=== PATIENT | female | born 1950 | race Caucasian/White ===

== ENCOUNTER 2020-02-16 08:27 | Day surgery (SDC) | payer OTHER ==
[~2020-02-16] VITALS: Ht 160 cm; Wt 127.7 kg
[~2020-02-16 08:27] MED LIST: ADVANCED CALCI1 EACH; ALBU90OI INH; CALCIUM 500 +1 EAC3; CEPH500 PO; FERR325; FISH1000; FURO40 PO; GABA300 PO; GUAI600T33 PO; HYDACE5 PO; K-Dur10 MEQ PO; Keflex500 MG PO; LISI20 PO; Lasix20 MG PO; NAPR500EC; NEOPOLHCSU RIGHTEAR; Naprosyn500 MG PO; Norco 5-325 Ta1 EACH PO; ONDA8ODT MM; SULTRIDS PO; SULTRISS PO; TRAM50 PO; Vibramycin100 MG PO; Vitamin C100 M1; Zofran Odt4 MG SL; [UNRECOGNIZED DRUG - REMARK]
--- NOTE | 2020-02-16 11:40 | NUR ---
PT BACK TO RECOVERY ROOM VIA RECLINER AFTER PROCEDURE. RIGHT RADIAL TR BAND AND SPLINT IN PLACE ON RIGHT WRIST. SITE IS CLEAN AND DRY, NO BLEEDING OR SWELLING NOTED.
--- NOTE | 2020-02-16 13:00 | NUR ---
RIGHT RADIAL TR BAND HAS BEEN FULLY DEFLATED, SITE IS CLEAN AND DRY. NO BLEEDING OR SWELLING NOTED. PT DENIES PAIN OR DISCOMFORT. CALL LIGHT IN REACH.
--- NOTE | 2020-02-16 14:16 | NUR ---
IV DC'D, CATH INTACT. PT GIVEN DC INSTRUCTIONS, FOLLOW UP INFORMATION. VERBALIZED UNDERSTANDING. RIGHT RADIAL SITE REMAINS SOFT AND NON-TENDER. NO BLEEDING OR SWELLING NOTED. PT OUT TO CAR VIA WHEELCHAIR.
== END 2020-02-16 15:14 | disposition home or self-care (01) ==
LOC: MHTC 08:27
PROC: B201YZZ Plain Radiography of Multiple Coronary Arteries using Other Contrast (ICD-10-PCS; principal; 2020-02-16)
PROC: 4A023N7 Measurement of Cardiac Sampling and Pressure, Left Heart, Percutaneous Approach (ICD-10-PCS; principal; 2020-02-16)
DX: I35.0 Nonrheumatic aortic (valve) stenosis (principal); I25.10 Atherosclerotic heart disease of native coronary artery without angina pectoris; I10 Essential (primary) hypertension; F41.9 Anxiety disorder, unspecified; E66.01 Morbid (severe) obesity due to excess calories; Z68.42 Body mass index [BMI] 45.0-49.9, adult; Z79.899 Other long term (current) drug therapy; Z88.5 Allergy status to narcotic agent
CPT/HCPCS: 93454; 99152; 99153; J1644; J2250; J3010; J7030; J7050; Q9967

== ENCOUNTER 2023-10-27 09:06 | Inpatient (IN) | payer OTHER ==
[~2023-10-27] VITALS: Ht 160 cm; Wt 111.5 kg
[~2023-10-27 09:06] MED LIST changes: +POTCHL20ER PO
[2023-10-27 09:38] VITALS: BP 129/76
--- NOTE | 2023-10-27 10:30 | NUR ---
PT ADMITTED FOR CORS, UPON ARRIVAL PT SOB WITH SATS 86-89% ON RA, LABORED BREATHING. PT STATES SHE IS ALLERGIC TO MAG AND K+, HAS NOT BEEN TAKING K+ WITH LASIX, DOES NOT ALWAYS TAKE LASIX PRESCRIBED PER PT REPORT. PT ANXIOUS. C/O PAIN TO LOWER LEGS, LEGS MILDLY WARM/RED W OPEN SORES; PT STATES LEGS ARE IMPROVED. PT PLACED ON O2 AT 2L VIA N/C. SATS 88-92%, PT HOLDS HER BREATH AT TIMES. DR ROSALES NOTIFIED/UPDATED. BNP ORDERED. PT TO BE ADMITTED TO HOSPITALIST SERVICE. PT'S SON UPDATED PER PT REQUEST, DR ROSALES SPOKE WITH PT'S SON VIA PHONE.
--- NOTE | 2023-10-27 11:05 | NUR ---
PT BEING ADMITTED R/T INCREASING SOB AND DECOMPENSATED HF; PLAN IS TO PERFORM ANGIOGRAM TOMORROW. REPORT CALLED TO PAULIE PALMER; ALL QUESTIONS ANSWERED. PT TRANSFERRED TO PCU 10, CONDITION STABLE.
[2023-10-27 11:36] VITALS: BP 124/78
[2023-10-27] MEDS ORDERED: Acetaminophen 325 MG TABLET PO PRN (11:50)
[2023-10-27] MEDS ORDERED: Bisacodyl 10 MG Supp PR PRN (11:50)
[2023-10-27] MEDS ORDERED: Zolpidem Tartrate 5 MG Tab PO PRN (11:55)
[2023-10-27] MEDS ORDERED: Ondansetron 4 MG TAB PO PRN (11:55)
[2023-10-27] MEDS ORDERED: Naloxone HCl 0.4MG / ML 1ML Vial IV PRN (11:55)
[2023-10-27 12:15] LABS: BASOPHILS ABSOLUTE AUTO 0.06 K/mm3 (0.00-0.23); BASOPHILS PERCENT AUTO 1 % (0-2); EOSINOPHILS ABSOLUTE AUTO 0.26 K/mm3 (0.00-0.68); EOSINOPHILS PERCENT AUTO 4 % (0-6); Hematocrit 39.4 % (33.0-51.0); Hemoglobin 11.1 g/dL (11.5-16.0); IMMATURE GRAN ABSOLUTE AUTO 0.01 K/mm3 (0.00-0.10); IMMATURE GRAN PERCENT AUTO 0 % (0-1); LYMPHOCYTES ABSOLUTE AUTO 0.86 K/mm3 (0.84-5.20); LYMPHOCYTES PERCENT AUTO 12 % (21-46); MONOCYTES ABSOLUTE AUTO 0.44 K/mm3 (0.16-1.47); MONOCYTES PERCENT AUTO 6 % (4-13); Mean Corpuscular HGB 23.1 pg (26.0-34.0); Mean Corpuscular HGB Conc 28.2 g/dL (31.5-36.5); Mean Corpuscular Volume 82 fL (80-100); Mean Platelet Volume 9.6 fL (9.1-12.4); NEUTROPHILS PERCENT AUTO 78 % (41-73); Platelet Count 176 K/mm3 (150-400); RDW Coefficient Variation 18.3 % (11.7-14.2); RDW Standard Deviation 54.8 fL (35.1-46.3); White Blood Cell Count 7.33 K/mm3 (4.00-11.30)
[2023-10-27 12:46] LABS: Albumin, Blood 3.1 g/dL (3.4-5.0); Albumin/Globulin Ratio 0.7 (0.8-1.8); Bilirubin, Total 0.8 mg/dL (0.1-1.0); Bun/Creatinine Ratio 12.7 (12.0-20.0); Calcium, Blood 8.8 mg/dL (8.5-10.1); Creatinine, Blood 1.42 mg/dL (0.40-1.00); Globulin, Blood 4.6 g/dL (2.2-4.0); Potassium, Blood 4.3 mmol/L (3.5-5.5); Total Protein, Blood 7.7 g/dL (6.4-8.2)
[2023-10-27] MEDS ORDERED: Triple Antibiotic Ointment 30 gm TOP SCH (13:00)
[2023-10-27] MEDS ORDERED: Bumetanide 0.25 MG/ML 4ML ViaL IV ONE (13:30)
[2023-10-27] MEDS ORDERED: Triple Antibiotic Ointment Pack 0.9 GM TOP SCH (14:00)
[2023-10-27] MEDS ORDERED: Hydrocortisone 1% Ointment 30 GM Tube TOP SCH (14:00)
[2023-10-27 14:38] LABS: CHOL/HDL RATIO 2.2; Cholesterol 119 mg/dL (50-200); HDL Cholesterol 55 mg/dL (>39); LDL/HDL RATIO 0.9; Low Density Lipoprotein Chol 48 mg/dL (0-110); Triglycerides 81 mg/dL (30-160); Very Low Density Lipoprot Chol 16 mg/dL (6-32)
[2023-10-27 17:18] VITALS: BP 100/66
--- NOTE | 2023-10-27 17:55 | NUR ---
ASSUMED CARE OF PT FROM ANESTHESIA ATTENDING RN AT 1117 AM WHEN SHE ARRIVED TO PCU 10. SEE DOCUMENTED VS AND ASSESSMENT. DR MARTINEZ IN ROOM TO SEE PT AND ORDERS CLARIFIED WITH HER BY THIS RN. PT GIVEN FIRST DOSE OF BUMEX AND HAS HAD 1800ML OF URINE OUTPUT SINCE. BP HAS DECREASED TO 100/66 MAP 76, AND THIS RN ATTEMPTED TO CONTACT DR MARTINEZ FOR HOLDING PARAMETERS FOR BUMEX IV PUSH LOWERING BP/OVER-DIRUESIS IN CRITICAL AORTIC STENOSIS CAN CAUSE PT TO DECOMPENSATE FURTHER D/T LOSS OF PRE-LOAD. PT IS ABLE TO USE CALL LIGHT FOR NEEDS, ALERT AND ORIENTED X 4. WILL CONTINUE TO MONITOR AND GIVE REPORT TO NOC SHIFT RN. THIS RN WILL CONTINUE TO TRY TO CONTACT DR MARTINEZ FOR ORDERS.
[2023-10-27] MEDS ORDERED: Furosemide 10 MG/ML 4ML Vial IV SCH (18:00)
[2023-10-27] MEDS ORDERED: Gabapentin 300 MG Cap PO SCH (18:00)
[2023-10-27] MEDS ORDERED: Bumetanide 0.25 MG/ML 4ML ViaL IV SCH (18:00)
[2023-10-27 20:03] VITALS: BP 110/74
[2023-10-27] MEDS ORDERED: Cephalexin Monohydrate 500 MG Cap PO SCH (21:00)
[2023-10-27] MEDS ORDERED: Lactobacil 2-S.Thermo-Bifido 1 1 Cap PO SCH (21:00)
[2023-10-27 23:55] VITALS: BP 121/78
[2023-10-28] VITALS (13 sets, daily range): BP systolic 96–143; BP diastolic 57–119
[2023-10-28 04:26] LABS: BASOPHILS ABSOLUTE AUTO 0.07 K/mm3 (0.00-0.23); BASOPHILS PERCENT AUTO 1 % (0-2); EOSINOPHILS ABSOLUTE AUTO 0.39 K/mm3 (0.00-0.68); EOSINOPHILS PERCENT AUTO 7 % (0-6); Hematocrit 38.7 % (33.0-51.0); Hemoglobin 10.7 g/dL (11.5-16.0); IMMATURE GRAN ABSOLUTE AUTO 0.02 K/mm3 (0.00-0.10); IMMATURE GRAN PERCENT AUTO 0 % (0-1); LYMPHOCYTES ABSOLUTE AUTO 1.01 K/mm3 (0.84-5.20); LYMPHOCYTES PERCENT AUTO 18 % (21-46); MONOCYTES ABSOLUTE AUTO 0.57 K/mm3 (0.16-1.47); MONOCYTES PERCENT AUTO 10 % (4-13); Mean Corpuscular HGB 22.9 pg (26.0-34.0); Mean Corpuscular HGB Conc 27.6 g/dL (31.5-36.5); Mean Corpuscular Volume 83 fL (80-100); Mean Platelet Volume 9.3 fL (9.1-12.4); NEUTROPHILS ABSOLUTE AUTO 3.48 K/mm3 (1.96-9.15); NEUTROPHILS PERCENT AUTO 63 % (41-73); Platelet Count 158 K/mm3 (150-400); RDW Coefficient Variation 18.2 % (11.7-14.2); RDW Standard Deviation 54.2 fL (35.1-46.3); Red Blood Cell Count 4.68 M/mm3 (3.80-5.20); White Blood Cell Count 5.54 K/mm3 (4.00-11.30)
[2023-10-28 04:59] LABS: Magnesium, Blood 2.3 mg/dL (1.6-2.4)
[2023-10-28 05:00] LABS: Albumin/Globulin Ratio 0.7 (0.8-1.8); Bilirubin, Total 0.7 mg/dL (0.1-1.0); Bun/Creatinine Ratio 10.8 (12.0-20.0); Calcium, Blood 8.5 mg/dL (8.5-10.1); Creatinine, Blood 1.57 mg/dL (0.40-1.00); Globulin, Blood 4.5 g/dL (2.2-4.0); Phosphorus, Blood 4.5 mg/dL (2.5-4.9); Potassium, Blood 4.1 mmol/L (3.5-5.5); Total Protein, Blood 7.5 g/dL (6.4-8.2)
--- NOTE | 2023-10-28 06:16 | NUR ---
SHIFT SUMMARY PATIENT ALERT, ORIENTED x4. ABLE TO MAKE NEEDS KNOWN TO STAFF. BP STABLE. PATIENT ON 2L NC DURING THE NIGHT WITH SPO2 LOW TO MID 90s, PATIENT WILL DESAT AT TIMES WHEN O2 OUT OF NOSE BUT OTHERWISE TOLERATES 2L. CONTINUOUS CARDIAC MONITORING ON DURING THE SHIFT, DENIED CHEST PAIN. PATIENT SELPT IN CHAIR FOR SHIFT FOR COMFORT. PATIENT AMBULATING INTO BATHROOM SBA, ADEQUATE OUTPUT. STANDING WEIGHT DONE THIS MORNING. NPO FOR POSSIBLE ANGIO TODAY. NO OTHER CHANGES, WILL REPORT TO DAY SHIFT RN.
[2023-10-28] MEDS ORDERED: Famotidine 20 MG Tab PO SCH (09:00)
[2023-10-28] MEDS ORDERED: Aspirin 81 MG Chew PO SCH (09:00)
[2023-10-28] MEDS ORDERED: Enoxaparin 40 MG/0.4 ML SYR SC SCH (09:00)
[2023-10-28] MEDS ORDERED: Heparin Sodium 1000 Units/ML 10ML MDV ONE ×2 (10:59→11:51)
[2023-10-28] MEDS ORDERED: NS 1,000 ML IV ONE (10:59)
[2023-10-28] MEDS ORDERED: NS 250 ML IV ONE (10:59)
[2023-10-28] MEDS ORDERED: Verapamil HCL 2.5 MG/ML 2ML Injection ONE (10:59)
[2023-10-28] MEDS ORDERED: Nitroglycerin 2 MG/20 ML BTL ONE (11:00)
[2023-10-28] MEDS ORDERED: FentaNYL Citrate 50 MCG/ML 2 ML Injection ONE (11:29)
[2023-10-28] MEDS ORDERED: NS 500 ML IV ONE (11:29)
[2023-10-28] MEDS ORDERED: Midazolam HCl 1MG / ML 2ML Vial ONE (11:29)
[2023-10-28] MEDS ORDERED: Miconazole Nitrate 2% 85 GM PWD TOP SCH (16:00)
--- NOTE | 2023-10-28 18:32 | NUR ---
ASSUMED CARE OF PT AT 0700 THIS AM. PT REMAINED NPO FOR LAP POLISHER THIS AM, PT IN LAP POLISHER FROM [phone]. R RADIAL SITE AND R AC VENOUS ACCESS RECOVERED W/O ANY COMPLICATIONS NOTED. PT UNABLE TO LIE FLAT/RAISE ARMS FOR CT-PE, WILL RE-EVALUATE TOMORROW AFTER FURTHER DIURESIS. PT RETURNED FROM LAP [employer] ACTING DIFFERENT THAN WHEN SHE LEFT, SHAKING, MOANING AND HAVING DIFFICULTY FORMING SENTICES. DR MARTINEZ NOTIFIED, PT HAD RETURNED TO HER BASELINE BEFORE SHE COULD EVALUATE HER. DRESSINGS TO BLEs CHANGED PER ORDERS, NYSTATIN POWDER APPLIED TO REDNESS IN FOLDS. PT FAMILY VISITED AND WERE UPDATED ON PROGRESS. NO FURTHER CHANGES TO CONDITION NOTED. PT IS ABLE TO MAKE NEEDS KNOWN AND USE CALL LIGHT APPROPRIATELY. CALL LIGHT IN REACH. WILL CONTINUE TO MONITOR AND GIVE REPORT TO ON COMING NOC SHIFT RN.
[2023-10-29] VITALS (8 sets, daily range): BP systolic 92–134; BP diastolic 57–97
[2023-10-29 03:56] LABS: Hematocrit 40.2 % (33.0-51.0); Hemoglobin 10.9 g/dL (11.5-16.0); Mean Corpuscular HGB 22.5 pg (26.0-34.0); Mean Corpuscular HGB Conc 27.1 g/dL (31.5-36.5); Mean Corpuscular Volume 83 fL (80-100); Mean Platelet Volume 9.9 fL (9.1-12.4); Platelet Count 153 K/mm3 (150-400); RDW Coefficient Variation 18.3 % (11.7-14.2); RDW Standard Deviation 54.4 fL (35.1-46.3); Red Blood Cell Count 4.85 M/mm3 (3.80-5.20); White Blood Cell Count 7.43 K/mm3 (4.00-11.30)
[2023-10-29 03:57] LABS: Bicarbonate Venous 34.8 mmol/L (24.0-30.0); PCO2 Venous 60.6 mmHg (38-42)
[2023-10-29 04:49] LABS: Albumin, Blood 2.9 g/dL (3.4-5.0); Albumin/Globulin Ratio 0.6 (0.8-1.8); Bilirubin, Total 0.6 mg/dL (0.1-1.0); Bun/Creatinine Ratio 11.5 (12.0-20.0); Calcium, Blood 8.3 mg/dL (8.5-10.1); Creatinine, Blood 1.57 mg/dL (0.40-1.00); Globulin, Blood 4.5 g/dL (2.2-4.0); Magnesium, Blood 2.2 mg/dL (1.6-2.4); Potassium, Blood 4.5 mmol/L (3.5-5.5); Total Protein, Blood 7.4 g/dL (6.4-8.2)
--- NOTE | 2023-10-29 05:42 | NUR ---
SHIFT SUMMARY PATIENT ALERT, ORIENTED x2-3, CAN BE FORGETFUL AT TIMES. ABLE TO MAKE NEEDS KNOWN TO STAFF. BP STABLE. PATIENT ON 2L NC WITH SPO2 LOW TO MID 90s, WILL DESAT WHEN OXYGEN IS OUT OF NOSE. ON CARDIAC MONITORING DURING THE NIGHT, NO EVENTS NOTED. NO CHEST PAIN THIS SHIFT. RIGHT RADIAL SITE RECOVERED, NO HEMATOMA NOTED. ARM BOARD IN PLACE. PATIENT SITTING IN CHAIR FOR NIGHT FOR COMFORT. PATIENT DID HAVE GLF THIS SHIFT AFTER SLIPPING ON KERLEX, SEE FALL ASSESSMENT. NO INJURIES NOTED, NO CHANGES TO VITAL SIGNS. AMBULATING INTO BATHROOM STANBY ASSIST WITH FWW. OTHERWISE, NO CHANGES THIS SHIFT, WILL REPORT TO DAY SHIFT RN.
--- NOTE | 2023-10-29 06:05 | NUR ---
10/27 FALL @2200 PT TO BEET TOPPER STATION. REQUESTING ASSISTANCE WITH DRESSINGS ON LEGS AND WANTING "FRESH AIR". STAFF TO PATIENT'S SIDE TRYING TO ASSIST BACK TO ROOM. PT NOT WANTING TO INITIALLY BUT SUCCUMBED TO REQAUESTS. STAFF AT SIDE. PT TURNED AROUND, SLIPPED ON WOUND DRESSINGS, AND FELL. STAFF DID NOT WITNESS PT HITTING HEAD, PT DENIES THIS. AT TIME OF FALL AND HOUR POST, NO NEURO CHANGES NOTED, NO MUSCULOSKELETAL DEFORMITY NOTED. FOLLOW UP ASSESMENT WITHOUT CHANGES. NOTIFIED. VSS.
--- NOTE | 2023-10-29 18:07 | NUR ---
SHIFT SUMMARY PT MENTATION AND ORIENTATION VARYING BETWEEN A&Ox4 TO A&Ox2. PT HAD MOMENT OF CONFUSION AND AGITATION, RIPPING EVERYTHING OFF AND TRYING TO LEAVE TO GO TAKE CARE OF HER SON. PT WAS VERY DIFFICULT TO REORIENT AND WAS GETTING VERY AGITATED WITH STAFF TRYING TO HELP HER. BP SOFT WITH SBP 90, MAP> 65, REPORTS DIZZINESS AT TIMES. SINUS 90's, DENIES CP/PRESSURE. DISCUSSED BP WITH ELECTRICIAN MARINE PRIOR TO ADMINISTERING 1800 DOSE OF IV BUMEX, INSTRUCTED TO ONLY ADMINISTER 1mg IV BUMEX D/T BP. SpO2> 92% 2L VIA NC, REPORTS SOB WHEN LYING FLAT RESULTING IN PT REFUSING TO LAY IN BED RATHER THAN RECLINER. CONTINENT OF URINE WITH GOOD OUTPUT, NO BM THIS SHIFT. SBA WITH FWW TO BATHROOM. NO C/O PAIN. NO OTHER EVENTS, WILL REPORT TO ONCOMING RN.
--- NOTE | 2023-10-29 18:49 | NUR ---
UPDATE WHEN IN [facility], PT FELT DIZZY AND LEANED FORWARD QUICKLY UNTIL SHE RESTED HER HEAD ON THE WALL. NO OPEN SKIN OR DIAZ ASSESSED AT THIS TIME, PT STATES THAT SHE FEELS FINE. MD NOTIFIED, NO ORDERS AT THIS TIME.
--- NOTE | 2023-10-29 21:00 | NUR ---
ASSUMPTION OF CARE: THIS RN ASSUMED CARE OF PT AT APPROX 1915. PT ALERT, ORIENTED X3-4 THIS EVENING. FOLLOWING MOST COMMANDS. EMOTIONAL AT START OF SHIFT W/ NOSE BLEED; NOSE BLEED RESOLVED WITHIN MINUTES & PT BECAME MORE CALM. SITTING UP IN CHAIR, HAS SET CHAIR ALARM OFF X1 BUT WAS REDIRECTABLE TO SIT BACK. SON TO BEDSIDE THIS PM FOR VISIT. VSS. ON 2L O2 VIA NC W/ SPO2 >90%. HR 80'S, SINUS ON TELE. BP STABLE. UP TO RESTROOM FOR LARGE BM W/ 1P ASSIST & FWW/GB. TOLERATING PO INTAKE, 1500ML FLUID RESTRICITON IN PLACE W/ STRICT I&O. NO OTHER NEEDS AT THIS TIME. PT MED W/ TELE STATUS, PLANS TO TRANSFER TO ROOM [facility] THIS EVENING. CALL LIGHT IN REACH, CHAIR ALARM IN PLACE.
--- NOTE | 2023-10-29 21:46 | NUR ---
TRANSFER TO 353 PT TRANSFERRED TO ROOM 353 BY THIS RN AND BERTRAND RN. PT TRANSFERRED W/ ALL PERSONAL BELONGINGS, NO CHANGES FROM PREVIOUS NOTE OR SHIFT ASSESSMENT AT TIME OF TRANSFER. ATTEMPTED TO NOTIFY PT'S SON OF TRANSFER PER PT REQUEST, UNABLE TO REACH W/ CONTACT NUMBER IN CHART.
[2023-10-29] MEDS ORDERED: Melatonin 3 MG Tab PO ONE (22:20)
--- NOTE | 2023-10-29 22:36 | NUR ---
PT TRANSFERRED FROM PCU. A/OX3, IS DEFENSIVE WHEN ASKING ORIENTATION QUESTIONS. STATES SHE IS "COMPLETELY WITH IT" BUT MENTATION SEEMS OFF EVEN THOUGH ORIENATION QUESTIONS ARE CORRECT, SHE CAN NOT REMEMBER WHY CERTAIN THINGS ARE NEEDED SUCH PULSE OX AND NASAL CANNULA AT 2L, WHICH SHE TAKES OFF FREQUENTLY. OR THE ARM BOARD PROTECTING HER RADIAL SITE POST ANGIOGRAM. SHE IS NOT SURE WHY SHE HAS TO STAY IN THE HOSPITAL EVEN THOUGH MYSELF AND CHIEF DIGITAL OFFICER EDUCATED HER ON PLAN OF CARE AND FUTURE [facility] [place]. PT LIVES ALONE, HAD A FALL LAST NIGHT ON PCU. PT IS ALSO CONCERNED ABOUT HOW SHE WILL GET TO [place] IF THE PLAN PER HOSPITALIST NOTE WAS TO DISCHARGE DAY PRIOR TO APPT FOR HER TO GET THERE ON TIME. WILL PASS ON TO DAY SHIFT RN CARE MANAGMENT IS NOT HERE ON SATURDAYS A NEED FOR POSSIBLE TRANSPORTATION TO [place]. PT REPORTS PAIN TO VERN MENDES, PRN TYLENOL GIVEN. PER PCU NURSE PT HAD BECOME INCREASINGLY AGITATED POST AMBIEN ADMINISTRATION LAST NIGHT THAT SHE HAS AVAILABLE PRN INSOMNIA. PT AWARE THAT SHE WAS AGITATED LAST NIGHT AND APALOGIZES. PT WAS ASKING FOR AMBIEN UPON COMING TO MED SURG UNIT. NOTIFIED BRANCH OPERATIONS MANAGER BETY WHO ORDERED A ONE TIME DOSE OF 6 MG MELATONIN TO TRY TONIGHT.
[2023-10-30] VITALS (8 sets, daily range): BP systolic 84–113; BP diastolic 50–83
[2023-10-30] MEDS ORDERED: TraZODone HCl 50 MG Tab PO PRN (00:35)
--- NOTE | 2023-10-30 04:29 | NUR ---
PT WOKE UP CONFUSED/AGITATED. ATTEMPTING TO GET OUT OF CHAIR, CHAIR ALARM GOING OFF. PT IS STILL DROWSY AND TREMORS ARE WORSENED WITH AGITATION. TOOK 3 STAFF MEMBERS TO HAVE HER STAND SAFELY AND RETURN HER TO THE CHAIR. PT IS PARANOID, STATING WE MOVED HER TO THIS UNIT TO HARM HER. ATTEMPTED TO CALM PT DOWN BY TALKING TO HER AND THE MORE SHE TALKED THE DROWSIER SHE GOT SITTING UP IN THE CHAIR. CHAIR WAS RECLINED AND PT IS NOW RESTING EYES CLOSED. 2L NC RESPIRATIONS UNLABORED. CONTINUOUS PULSE OX. TELEMETRY MONITORING.
--- NOTE | 2023-10-30 08:05 | NUR ---
CALLED DR MARTIN- PT HAS SEVERE . SBP 84 THIS AM AND SHE C/O WEAKNESS. WHEN AMBULATING TO THE BATHROOM HER KNEES APPEARED TO BUCKLE AND STAFF PROVIDED THE PT WITH HANDS ON ASSISTANCE AND SHE WAS ABLE TO CATCH HERSELF WITHOUT FALLING. DAILY WT WAS COMPLETED WITH PT STANDING. WT 115.4KG. PT UP IN RECLINER, STATES SHE CAN NOT BREATHE IN THE BED. PT BEING DIURESED. CALLED TO TALK ABOUT EITHER TRANSFER FOR BP SUPPORT WHILE DIURETICS CONTINUE OR HOLDING DIURETICS THIS AM. WAITING FOR A CALL BACK.
--- NOTE | 2023-10-30 09:27 | NUR ---
SPOKE TO DR MARTIN AT THE BEDSIDE- PLAN IS TO ADD MITODRENE AND USE ALBUMIN TO HELP WITH MAINTAINING BP WITH THE CONTINUED DIURESIS. ORDER RECIEVED TO ADMINISTER THE IV BUMEX ORDERED.
[2023-10-30] MEDS ORDERED: Midodrine 5 MG Tab PO SCH ×2 (09:42→13:00)
[2023-10-30] MEDS ORDERED: Albumin (Human) 25gm/100ml 100 ML IV SCH (09:45)
[2023-10-30 10:09] LABS: Bun/Creatinine Ratio 12.3 (12.0-20.0); Calcium, Blood 8.1 mg/dL (8.5-10.1); Creatinine, Blood 1.54 mg/dL (0.40-1.00); Magnesium, Blood 2.1 mg/dL (1.6-2.4); Potassium, Blood 4.2 mmol/L (3.5-5.5)
[2023-10-30] MEDS ORDERED: NS 250 ML IV PRN (10:50)
--- NOTE | 2023-10-30 19:31 | NUR ---
SHIFT SUMMARY- PT ALERT AND ORIENTED TO SELF. SHE HAD C/O LEG PAIN THIS EVENING, MEDICATED WITH TYLENOL, WITH LITTLE EFFECT. CHILD CAREGIVER ASSISTED WITH EVEING MEDS. SBP 102 PT MEDICATED WITH MIDODRINE AND GABAPENTIN. BP RECHECK AT CHANGE OF SHIFT SHOWS SBP 88-90. IV BUMEX NOT YET GIVEN. PT IS UP IN THE RECLINER SHE HAS BEEN AGGITATED AND IMPULSIVE ALL SHIFT. SHE REFUSED TO CALL FOR STAFF AND NEARLY FELL EARLIER IN THE DAY. REQUESTED A CLINICAL SITTER FOR THE PT. NIGHT RN AWARE THE DR WANTS THE PT TO RECIEVE IV BUMEX, HOWEVER THIS RN IS CONCERNED THAT THE PT SBP IS TOO LOW TO SUPPORT ADMINISTRATION OF IV BUMEX ON THIS UNIT SAFELY. PT DID RECIEVE IV ALBUMIN EARLIER TODAY WITH HER FIRST DOSE OF BUMEX. THIS EVENING SHE APPEARS MORE GROGGY AND SPEECH IS NOT CLEAR. PT DID REQUEST NO MORE TRAZADONE OR AMBIEN WHEN SHE SPOKE TO PAULIE HUNTER EARLIER TODAY. NIGHT RN AWARE OF LOW BP AND IS CONTACTING THE NIGHT HOSPITALIST FOR FURTHER ORDERS. PT HAS A CLINICAL SITTER AT THE RECLINER SIDE CURRENTLY. CALL LIGHT IS IN REACH. PT A LITTLE MORE LETHARGIC THIS EVENING WHEN COMPARED TO THIS AFTERNOON.
[2023-10-30] MEDS ORDERED: Midodrine 5 MG Tab PO ONE (20:15)
[2023-10-30] MEDS ORDERED: Albumin (Human) 25gm/100ml 100 ML IV ONE (20:15)
[2023-10-31] VITALS (14 sets, daily range): BP systolic 115–134; BP diastolic 70–88
[2023-10-31] MEDS ORDERED: OLANZapine 10 MG Vial IM ONE (00:50)
--- NOTE | 2023-10-31 03:29 | NUR ---
SHIFT SUMMARY PT CONFUSED, IRRITABLE, PARANOID AT BEGINNING OF SHIFT. 1;1 SITTER PRESENT FOR HIGH FALL RISK AND PULLING AT OXYGEN TUBING. PT WAS BECOMING INCREASINGLY AGITATED AROUND MIDNIGHT. PT WAS NOT REDIRECTABLE OR DISTRACTED. ATTEMPTED TO GET AHOLD OF SON WHO DID NOT ANSWER. PT EDUCATED ON REQUIREMENT FOR O2, BUT SHE KEEPS TAKING OFF NASAL CANNULA SWITCHED HER TO SIMPLE MASK TO GIVE HER DRY NOSE A BREAK SHE HAS HAD MULTIPLE NOSE BLEEDS AND SHE IS REFUSING TO LEAVE THIS IN PLACE WELL, DESATTING DOWN TO 70%. VERBALLY THREATENING STAFF AND SWINGING AT STAFF IF WE ATTEMPT TO REPLACE OXYGEN MASK. MD NOTIFIED WHO ORDERED ONE TIME DOSE OF ZYPREXA AND NURSING CLINICAL JUDGEMENT TO START RESTRAINTS. MD MADE AWARE AND ORDER PLACED. RESTRAINTS STARTED AT 0130. PT FELL ASLEEP SHORTLY AFTER. CONTINUOUS PULSE OX PRESENT. SATS ABOVE 95%. RESPIRATIONS EVEN AND UNLABORED. CALL LIGHT IN REACH BUT DOES NOT USE APPROPRIATELY. 1:1 SITTER PRESENT.
[2023-10-31 06:40] LABS: Calcium, Blood 8.4 mg/dL (8.5-10.1); Creatinine, Blood 1.62 mg/dL (0.40-1.00); Magnesium, Blood 2.2 mg/dL (1.6-2.4); Potassium, Blood 3.9 mmol/L (3.5-5.5)
--- NOTE | 2023-10-31 08:05 | NUR ---
PATIENTS SON WAS CALLING THIS AM WHILE GIVING REPORT TO ONCOMING NURSE RONY. UPDATES OF LAST NIGHTS EVENT GIVEN. PT EDUCATED ON REASONING FOR INTERVENTIONS AND RESTRAINT REQUIREMENTS. VERBALIZED UNDERSTANDING. HAD NO FURTHER QUESTIONS.
--- NOTE | 2023-10-31 10:30 | NUR ---
TRANSFER NOTE- SPOKE TO DR MARTIN, HE ORDER THE PT TO TRANSFER BACK TO PCU. TELEPHONE REPORT COMPLETED WITH DRYWALL APPLICATOR. PT IN BED, SOFT RESTRAINTS IN PLACE FOR SAFETY. PT BECOMING AGGITATED SHE STAES SHE NEEDS TO GO PEE. PT WAS INFORMED SHE HAS AN ATTEND IN PLACE WELL A PUREWICK, OFFERED A BED KRISHNAN. PT VERY GROGGY AND IS A FALL RISK. SOFT RESTRAINTS PLACED TO KEEP STAFF SAFE THE PT WAS COMBATIVE EARLIER, STRIKING A STAFF MEMBER. PT ATTEMPTED TO VOID AND STATED SHE DID, NO OUTPUT IN THE PUREWICK. REPORT COMPLETED WITH DRYWALL APPLICATOR. SHE ASKED THAT THE PT BE TRANSFERED AT THIS TIME AND SHE WOULD MANAGE THE PT BLADDER NEEDS. YARD CALLER NOPTIFIED OF PT TRANSFER.
[2023-10-31 11:05] LABS: Source, Urine Foley catheter
[2023-10-31 11:08] LABS: Appearance, Urine Clear (Clear); Bilirubin, Urine Neg (Neg); Blood, Urine Neg (Neg); Color, Urine Yellow (P-Yellow); Glucose Qualitative, Urine Neg (Neg); Ketones, Urine Neg (Neg); Leukocyte Esterase, Urine Neg (Neg); Nitrite, Urine Neg (Neg); Protein, Urine Neg (Neg); Specific Gravity, Urine 1.015 (1.003-1.022); Urobilinogen, Urine NORM (Normal)
--- NOTE | 2023-10-31 17:35 | NUR ---
TRANSFER TO PCU/SHIFT SUMMARY PT TRANSFERRED TO PCU AT 1035 FOR AMS. REPORT FROM RONY APODACA. PT ARRIVES ALERT TO SELF, HOSPITAL AND YEAR. FOLLOWS SIMPLE DIRECTIONS. OCCASIONALLY IRRITABLE, TEARFUL AND AGITATED BUT REDIRECTABLE. RESTRAINTS REMOVED. SITTER CONTINUES FOR PT SAFETY. HAS OCCASIONALLY NEEDED TO REPLACE O2 MASK. PT MAKES CONFUSED STATEMENTS AT TIMES. AGITATED WHEN SON IN ROOM. SON UPDATED. LUNGS DIM THROUGHOUT, ON 3L VIA OXYMASK. SINUS ARRHYTMIA. BP STABLE. ARNOLD PLACED FOR URINARY RETENTION ON ARRIVAL TO PCU. AGUSTIN AREA RED AND MOIST. WILL CONTINUE PLAN OF CARE UNTIL REPORT TO ONCOMING NURSE.
[2023-10-31] MEDS ORDERED: TraZODone HCl 50 MG Tab PO PRN (19:00)
[2023-11-01 03:49] VITALS: BP 129/92
[2023-11-01] MEDS ORDERED: Ketorolac Tromethamine 15mg Vial IV PRN (05:00)
--- NOTE | 2023-11-01 05:29 | NUR ---
SHIFT NOTE: PT ALERT AND ORIENTED TO SELF ONLY. SHE IS UNABLE TO USE THE CALL LIGHT OR APPROPRIATELY COMMUNICATE HER NEEDS. SHE IS ON TELE AND HAD TWO EPISODES OF ASYMPTOMATIC EPISODES OF SVT T/O SHIFT. SHE IS ON 3L NC AND FREQUENTLY DESATS SLOW TO RECOVER. NC MOVED TO HER MOUTH WHILE SHE SLEEPS BECAUSE SHE IS A MOUTH BREATHER. SHE HAS A ARNOLD FOR ACUTE RETENTION. ARNOLD IRRIGATED TO ENSURE PATENCY. SHE HAS BEEN Q2 TURNED T/O SHIFT. SHE BECAME IRRITABLE AND CRYING OUT IN PAIN WITH REPOSITIONING. SHE WAS UNABLE TO FOLLOW COMMANDS TO TAKE PO, NOTIFIED AND ORDERED IV TORADOL. SEE EMAR FOR ADMINISTRATION INSTRUCTIONS. PT MOVED TO RECLINER FOR COMFORT. 1:1 SITTER AT BEDSIDE. WILL CONTINUE TO MONITOR AND REPORT TO ONCOMING RN
[2023-11-01 05:54] LABS: Bun/Creatinine Ratio 14.9 (12.0-20.0); Calcium, Blood 8.5 mg/dL (8.5-10.1); Creatinine, Blood 1.48 mg/dL (0.40-1.00); Magnesium, Blood 2.3 mg/dL (1.6-2.4); Potassium, Blood 4.3 mmol/L (3.5-5.5)
[2023-11-01] MEDS ORDERED: Bumetanide 0.25 MG/ML 4ML ViaL IV SCH (09:00)
[2023-11-01] MEDS ORDERED: Furosemide 40 MG Tab PO SCH (09:00)
[2023-11-01 10:02] VITALS: BP 110/60
[2023-11-01 12:42] LABS: BASOPHILS ABSOLUTE AUTO 0.06 K/mm3 (0.00-0.23); BASOPHILS PERCENT AUTO 1 % (0-2); EOSINOPHILS ABSOLUTE AUTO 0.31 K/mm3 (0.00-0.68); EOSINOPHILS PERCENT AUTO 4 % (0-6); Hematocrit 35.5 % (33.0-51.0); Hemoglobin 9.8 g/dL (11.5-16.0); IMMATURE GRAN ABSOLUTE AUTO 0.03 K/mm3 (0.00-0.10); IMMATURE GRAN PERCENT AUTO 0 % (0-1); LYMPHOCYTES ABSOLUTE AUTO 0.83 K/mm3 (0.84-5.20); LYMPHOCYTES PERCENT AUTO 9 % (21-46); MONOCYTES ABSOLUTE AUTO 0.65 K/mm3 (0.16-1.47); MONOCYTES PERCENT AUTO 7 % (4-13); Mean Corpuscular HGB 23.1 pg (26.0-34.0); Mean Corpuscular HGB Conc 27.6 g/dL (31.5-36.5); Mean Corpuscular Volume 84 fL (80-100); Mean Platelet Volume 10.8 fL (9.1-12.4); NEUTROPHILS ABSOLUTE AUTO 7.05 K/mm3 (1.96-9.15); NEUTROPHILS PERCENT AUTO 79 % (41-73); Platelet Count 113 K/mm3 (150-400); RDW Coefficient Variation 18.4 % (11.7-14.2); RDW Standard Deviation 55.4 fL (35.1-46.3); Red Blood Cell Count 4.25 M/mm3 (3.80-5.20); White Blood Cell Count 8.93 K/mm3 (4.00-11.30)
--- NOTE | 2023-11-01 18:20 | NUR ---
Shift summary. Pt up to recliner most of shift. Sitter at bedside. Pt cooperative with care this shift, pleasant. Plan is to transfer pt to [facility] for further care. Up with OT this shift, no acute events. See chart for further details.
[2023-11-01 18:45] VITALS: BP 110/60
[2023-11-01 20:53] VITALS: BP 110/71
--- NOTE | 2023-11-01 21:37 | NUR ---
ASSUMED CARE PT IS A&O X2-3; PT AT TIME OF THIS NOTE HAS NOT SHOWN TO BE IMPULSIVE EXCEPT FOR ONE ATTEMPT TO GET OUT OF CHAIR PER PT; EDUCATED ON IMPORTANCE OF USING CALL LIGHT. PT DENIES CP, SOB, AND NAUSEA AT THIS TIME. OCCASIONAL NONPRODUCTIVE COUGH NOTED. CRACKLES BILATERAL T/O. PT'S FAMILY IN ROOM W/ [place] ABOUT TO TAKE PT. REPORT WAS GIVEN TO BERNARDINO IN [facility].
== END 2023-11-01 21:55 | disposition short-term general hospital (02) | DRG 286 ==
LOC: ORSCMMR 09:06 → MHTC 09:06 → PCU 11:12 → MEDS 10-29 21:32 → PCU 10-31 10:50
PROVIDERS: Family Medicine Adult Medicine; Internal Medicine; Student in an Organized Health Care Education/Training Program; ADMIT Hospitalist
PROC: B2111ZZ Fluoroscopy of Multiple Coronary Arteries using Low Osmolar Contrast (ICD-10-PCS; principal; 2023-10-28)
PROC: 4A023N7 Measurement of Cardiac Sampling and Pressure, Left Heart, Percutaneous Approach (ICD-10-PCS; 2023-10-28)
DX: I13.0 Hypertensive heart and chronic kidney disease with heart failure and stage 1 through stage 4 chronic kidney disease, or unspecified chronic kidney disease (principal); G92.8 Other toxic encephalopathy; I50.33 Acute on chronic diastolic (congestive) heart failure; J96.00 Acute respiratory failure, unspecified whether with hypoxia or hypercapnia; Z68.42 Body mass index [BMI] 45.0-49.9, adult; L03.116 Cellulitis of left lower limb; I35.0 Nonrheumatic aortic (valve) stenosis; E66.01 Morbid (severe) obesity due to excess calories; E78.5 Hyperlipidemia, unspecified; M32.9 Systemic lupus erythematosus, unspecified; I27.20 Pulmonary hypertension, unspecified; N18.30 Chronic kidney disease, stage 3 unspecified; G47.33 Obstructive sleep apnea (adult) (pediatric); D63.1 Anemia in chronic kidney disease; Z88.5 Allergy status to narcotic agent; Z88.8 Allergy status to other drugs, medicaments and biological substances; Z79.899 Other long term (current) drug therapy; R29.6 Repeated falls; F41.9 Anxiety disorder, unspecified; I87.8 Other specified disorders of veins
CPT/HCPCS: 36415; 71045; 71046; 76937; 80048; 80053; 80061; 81003; 82803; 83735; 83880; 84100; 84484; 85025; 85027; 85379; 93456; 94762; 97110; 97116; 97162; 97165; 97530; 97535; 99152; 99153; A9270; C1769; C1887; C1894; J1644; J1650; J1885; J2250; J3010; J7030; J7040; J7050; P9047; Q9967

== ENCOUNTER → 2024-08-17 | Outpatient (CLI) | payer OTHER ==
[~2024-08-17] MED LIST changes: +ACETAZOLAMIDE PO; +Aspir 8181 MG PO; +FERROUS GLUCON324 M7 PO; +POTA10T PO
[2024-08-17 19:02] LABS: BASOPHILS ABSOLUTE AUTO 0.08 K/mm3 (0.00-0.23); BASOPHILS PERCENT AUTO 1 % (0-2); EOSINOPHILS ABSOLUTE AUTO 1.13 K/mm3 (0.00-0.68); EOSINOPHILS PERCENT AUTO 11 % (0-6); Hematocrit 30.3 % (33.0-51.0); Hemoglobin 9.4 g/dL (11.5-16.0); IMMATURE GRAN ABSOLUTE AUTO 0.02 K/mm3 (0.00-0.10); IMMATURE GRAN PERCENT AUTO 0 % (0-1); LYMPHOCYTES ABSOLUTE AUTO 1.34 K/mm3 (0.84-5.20); LYMPHOCYTES PERCENT AUTO 13 % (21-46); MONOCYTES ABSOLUTE AUTO 0.61 K/mm3 (0.16-1.47); MONOCYTES PERCENT AUTO 6 % (4-13); Mean Corpuscular HGB 29.7 pg (26.0-34.0); Mean Corpuscular Volume 96 fL (80-100); Mean Platelet Volume 10.9 fL (9.1-12.4); NEUTROPHILS ABSOLUTE AUTO 6.88 K/mm3 (1.96-9.15); NEUTROPHILS PERCENT AUTO 68 % (41-73); Platelet Count 235 K/mm3 (150-400); RDW Coefficient Variation 14.6 % (11.7-14.2); RDW Standard Deviation 51.3 fL (35.1-46.3); Red Blood Cell Count 3.17 M/mm3 (3.80-5.20); White Blood Cell Count 10.06 K/mm3 (4.00-11.30)
[2024-08-17 19:28] LABS: Alanine Aminotransfer (ALT/SGP 16 U/L (12-78); Albumin, Blood 3.4 g/dL (3.4-5.0); Albumin/Globulin Ratio 0.8 (0.8-1.8); Alk Phos 71 U/L (50-136); Anion Gap 7 mmol/L (3-11); Aspartate Aminotrans (AST/SGOT 22 U/L (12-37); Bilirubin, Total 0.2 mg/dL (0.1-1.0); Blood Urea Nitrogen 27 mg/dL (8-24); Bun/Creatinine Ratio 15.8 (12.0-20.0); CHOL/HDL RATIO 3.7; CO2, Blood 30 mmol/L (21-32); Calcium, Blood 9.1 mg/dL (8.5-10.1); Chloride, Blood 104 mmol/L (98-108); Cholesterol 179 mg/dL (50-200); Creatinine, Blood 1.71 mg/dL (0.40-1.00); Globulin, Blood 4.2 g/dL (2.2-4.0); Glomerular Filtration Rate 31 (60-); Glucose, Blood 108 mg/dL (70-99); HDL Cholesterol 48 mg/dL (>39); LDL/HDL RATIO 1.8; Low Density Lipoprotein Chol 86 mg/dL (0-110); Potassium, Blood 3.6 mmol/L (3.5-5.5); Sodium, Blood 137 mmol/L (136-145); Total Protein, Blood 7.6 g/dL (6.4-8.2); Triglycerides 224 mg/dL (30-160); Very Low Density Lipoprot Chol 44 mg/dL (6-32)
== END ==
LOC: LAB SHORT 18:34 → LAB 18:34
PROVIDERS: Student in an Organized Health Care Education/Training Program
DX: I10 Essential (primary) hypertension (principal); G62.9 Polyneuropathy, unspecified; G56.03 Carpal tunnel syndrome, bilateral upper limbs; Z13.6 Encounter for screening for cardiovascular disorders; Z95.2 Presence of prosthetic heart valve
CPT/HCPCS: 80053; 80061; 83880; 85025